=== PATIENT | male | born 2000 | race Caucasian/White ===

== ENCOUNTER 2023-06-17 08:40 | Emergency (ER) | payer BC, SELFPAY ==
[2023-06-17 08:47] VITALS: BP 112/55; PULSE 61; TEMP 37.1; O2SAT 979; BMI 20.2
--- NOTE | 2023-06-17 09:11 | ED.DENTAL1 ---
HPI - Dental/Oral General Chief complaint: Dental/Oral Stated complaint: MOUTH PAIN/SWELLING Time Seen by Provider: 06/17/23 08:42 Source: patient Mode of arrival: walk-in Limitations: no limitations History of Present Illness HPI Narrative: 22-year-old male presents to the emergency department for dental pain. He has swelling on his right lower jaw. He had this problem in March and was put on an antibiotic and it got better. He he saw the dentist 2 days ago and has been on clindamycin for 2 days. He has an appointment on June 21 for possible dental extraction on that day but it became more swollen so he came in here. No difficulty breathing or swallowing. The pain is moderate and continuous. Related Data Home Medications ?Medication ?Instructions ?Recorded ?Confirmed clindamycin HCl 300 mg PO QID 06/17/23 06/17/23 Previous Rx's ?Medication ?Instructions ?Recorded amoxicillin 500 mg capsule 500 mg PO TID 10 days #30 caps 06/17/23 ketorolac 10 mg tablet 10 mg PO Q8H PRN pain 5 days #15 06/17/23 tabs Allergies Allergy/AdvReac Type Severity Reaction Status Date / Time No Known Drug Allergies Allergy Verified 06/17/23 08:47 Review of Systems ROS Narrative A ten point review of systems is negative except as noted above. Exam Narrative Exam Narrative: Nurses note and vital signs reviewed and patient is not hypoxic. General: The patient appears well and in no apparent distress. Patient is resting comfortably on cart. Skin: Warm, dry, no pallor noted. There is no rash noted. Head: Normocephalic, atraumatic Eye: Normal conjunctiva, no drainage, EOMI. PERRL Ears, Nose, Mouth, and Throat: oral mucosa is moist. Nares patent. Swelling present on the right jaw externally. No erythema. No swelling to the floor of his mouth and he is handling his oral secretions well. Cardiovascular: Regular Rate and Rhythm Respiratory: Patient is in no distress, no accessory muscle use, lungs are clear to auscultation, no wheezing, rales or rhonchi Back: non-tender GI: Soft and nontender Musculoskeletal: The patient has no evidence of calf tenderness, no pitting edema, symmetrical pulses noted bilaterally Neurological: A&O, normal speech Psychiatric: Cooperative Constitutional Vital Signs, click to edit/add: Last Vital Signs Temp 98.7 F 06/17/23 08:47 Pulse 61 06/17/23 08:47 Resp 15 06/17/23 08:47 BP 112/55 06/17/23 08:47 Pulse Ox 979 H 06/17/23 08:47 O2 Del Method Room Air 06/17/23 08:47 Course Vital Signs Vital signs: Vital Signs Temperature 98.7 F 06/17/23 08:47 Pulse Rate 61 06/17/23 08:47 Respiratory Rate 15 06/17/23 08:47 Blood Pressure 112/55 06/17/23 08:47 Pulse Oximetry 979 H 06/17/23 08:47 Oxygen Delivery Method Room Air 06/17/23 08:47 Temperature 98.7 F 06/17/23 08:47 Pulse Rate 61 06/17/23 08:47 Respiratory Rate 15 06/17/23 08:47 Blood Pressure 112/55 06/17/23 08:47 Pulse Oximetry 979 H 06/17/23 08:47 Oxygen Delivery Method Room Air 06/17/23 08:47 MDM - Dental/Oral MDM Narrative Medical decision making narrative: The patient was given IM Ancef. The patient states that he was on amoxicillin and ketorolac in March and it helped a great deal. He was prescribed amoxicillin and ketorolac and will follow-up with his dentist at his appointment on June 21. Treatment diagnosis and follow-up were discussed with the patient. Differential Diagnosis Differential diagnosis: Likely gingival abscess, dental caries, toothache and dental abscess Discharge Plan Discharge Stand Alone Forms: Portal Instructions Chief Complaint: Dental/Oral Clinical Impression: Dental abscess Patient Disposition: Home, Self-Care Time of Disposition Decision: 09:31 Condition: Good Mode of Transportation: Private Vehicle Prescriptions / Home Meds: New amoxicillin 500 mg capsule 500 mg PO TID 10 Days Qty: 30 0RF ketorolac 10 mg tablet 10 mg PO Q8H PRN (Reason: pain) 5 Days Qty: 15 0RF No Action clindamycin HCl 300 mg PO QID Print Language: Kinyarwanda Instructions: Dental Abscess (ED) Additional Instructions: See your dentist at your appointment Discontinue the clindamycin Referrals: Physician,Non-Staff, MD [Primary Care Provider] - 1 week
[2023-06-17] MEDS: CEFAZOLIN SODIUM 1,000 MG, WATER FOR INJECTION,STERILE 2.5 ML IM (09:23)
== END 2023-06-17 09:44 | disposition home or self-care (01) ==
PROVIDERS: Emergency Provider Emergency Medicine
DX: K04.7 Periapical abscess without sinus (principal)
CPT/HCPCS: 96372; 99284